=== PATIENT | female | born 1975 | race Caucasian/White ===

== ENCOUNTER → 2017-02-11 | Outpatient (REF) | payer OTHER | LOC: M LAB REF 15:12 | PROVIDERS: ATTEND Physician Assistant | DX: R30.0 Dysuria (principal) ==

== ENCOUNTER → 2017-02-11 | Outpatient (CLI) | payer OTHER | LOC: M WUC 14:37 | PROVIDERS: ATTEND Physician Assistant | DX: R30.0 Dysuria (principal) ==

== ENCOUNTER → 2017-05-27 | Outpatient (CLI) | payer OTHER ==
[2017-05-27 14:12] LABS: FREE T4 0.44 NG/DL (0.76-1.46)
== END ==
LOC: M LAB 11:50
DX: E89.0 Postprocedural hypothyroidism (principal)
CPT/HCPCS: 84443

== ENCOUNTER 2017-09-27 19:13 | Inpatient (IN) | payer OTHER ==
[2017-09-27 20:43] LABS: HEMATOCRIT 40.3 % (36.0-47.0); HEMOGLOBIN 13.6 g/dl (12.0-15.5); MEAN CORPUSCULAR HEMOGLOBIN 32.9 pg (27.0-33.0); MEAN CORPUSCULAR HGB CONC 33.7 g/dl (32.0-36.5); MEAN CORPUSCULAR VOLUME 97.6 fl (80.0-96.0); PLATELET COUNT, AUTOMATED 322 10^3/uL (150-450); RED BLOOD COUNT 4.13 10^6/uL (4.00-5.40); RED CELL DISTRIBUTION WIDTH 12.5 % (11.5-14.5)
[2017-09-27 20:57] LABS: CONTROL LINE HCG INT CTR LINE PRESENT; HCG, SERUM QUALITATIVE NEGATIVE (NEGATIVE)
[2017-09-27] MEDS: THIAMINE 100 MG TAB PO (21:00)
[2017-09-27 21:02] LABS: AMPHETAMINES LEVEL URINE NEGATIVE (NEGATIVE); BARBITURATES URINE NEGATIVE (NEGATIVE); BENZODIAZEPINES URINE NEGATIVE (NEGATIVE); CANNABINOIDS URINE NEGATIVE (NEGATIVE); COCAINE METABOLITE URINE NEGATIVE (NEGATIVE); METHADONE URINE NEGATIVE (NEGATIVE); OPIATES URINE NEGATIVE (NEGATIVE); PHENCYCLIDINE URINE NEGATIVE (NEGATIVE)
[2017-09-27 21:12] LABS: ACETAMINOPHEN LEVEL < 2.0 UG/ML (10.0-30.0); ALBUMIN 4.1 GM/DL (3.2-5.2); ALBUMIN/GLOBULIN RATIO 1.17 (1.00-1.93); ALKALINE PHOSPHATASE 68 U/L (45-117); ALT/SGPT 23 U/L (12-78); ANION GAP 8 MEQ/L (8-16); AST/SGOT 23 U/L (7-37); BILIRUBIN,DIRECT 0.1 MG/DL (0.0-0.2); BILIRUBIN,TOTAL 0.3 MG/DL (0.2-1.0); BLOOD UREA NITROGEN 11 MG/DL (7-18); CALCIUM LEVEL 8.3 MG/DL (8.5-10.1); CARBON DIOXIDE LEVEL 27 MEQ/L (21-32); CHLORIDE LEVEL 108 MEQ/L (98-107); ETHYL ALCOHOL (ETHANOL) 0.081 % (0.000-0.010); GLOMERULAR FILTRATION RATE > 60.0 (>58); GLUCOSE, FASTING 84 MG/DL (70-100); POTASSIUM SERUM 4.6 MEQ/L (3.5-5.1); SALICYLATE LEVEL < 1.7 MG/DL (5.0-30.0); SODIUM LEVEL 143 MEQ/L (136-145); TOTAL PROTEIN 7.6 GM/DL (6.4-8.2)
[2017-09-27] MEDS ORDERED: traZODone 50 MG TAB PO (22:00)
[2017-09-27] MEDS ORDERED: MAALOX 30 ML SUSP *UDC PO (22:00)
[2017-09-27] MEDS ORDERED: LORazepam 2 MG TAB PO (22:00)
[2017-09-27] MEDS ORDERED: MOM 30ML SUSPENSION UDC PO (22:00)
[2017-09-28] MEDS: ACETAMINOPHEN TAB 650MG DOSE (2X325MG) PO ×2 (00:33→20:24)
[2017-09-28] MEDS: OLANZapine ORAL DISINTEGRATING TAB 5MG PO (00:33)
[2017-09-28] MEDS: MULTIVITAMINS/MINERALS THERAP 1 TAB PO (12:15)
[2017-09-28] MEDS: FOLIC ACID 1 MG TAB PO (12:15)
[2017-09-28] MEDS: THIAMINE 100 MG TAB PO ×2 (12:15→20:24)
[2017-09-28] MEDS: CitaloPRAM (CeleXA) 10 MG TABLET PO (12:15)
[2017-09-28] MEDS: LEVOTHYROXINE 112MCG TABLET (0.112MG) PO (12:40)
[2017-09-28] MEDS: PILL CRUSHER/CUTTER 1 EACH XX (20:25)
[2017-09-29] MEDS: LEVOTHYROXINE 112MCG TABLET (0.112MG) PO (06:07)
[2017-09-29 07:30] LABS: FREE THYROXINE INDEX 1.5 % (1.3-4.8); T UPTAKE 32 % (30-39); THYROXINE (T4) 4.7 UG/DL (4.5-12.0)
[2017-09-29] MEDS: MULTIVITAMINS/MINERALS THERAP 1 TAB PO (08:28)
[2017-09-29] MEDS: THIAMINE 100 MG TAB PO ×2 (08:28→20:55)
[2017-09-29] MEDS: FOLIC ACID 1 MG TAB PO (08:28)
[2017-09-29] MEDS: CitaloPRAM (CeleXA) 10 MG TABLET PO (08:28)
[2017-09-29] MEDS ORDERED: ONDANSETRON 4 MG ORAL DISINTEGRATING TAB (Q0162 PER 1MG) PO (11:15)
[2017-09-30] MEDS: LEVOTHYROXINE 112MCG TABLET (0.112MG) PO (06:17)
[2017-09-30] MEDS: MULTIVITAMINS/MINERALS THERAP 1 TAB PO (08:17)
[2017-09-30] MEDS: FOLIC ACID 1 MG TAB PO (08:17)
[2017-09-30] MEDS: CitaloPRAM (CeleXA) 10 MG TABLET PO (08:17)
[2017-09-30] MEDS: THIAMINE 100 MG TAB PO (08:17)
[2017-09-30] MEDS: PILL CRUSHER/CUTTER 1 EACH XX (21:11)
[2017-10-01] MEDS: LEVOTHYROXINE 112MCG TABLET (0.112MG) PO (06:04)
[2017-10-01] MEDS: CitaloPRAM (CeleXA) 10 MG TABLET PO (07:51)
[2017-10-01] MEDS: MULTIVITAMINS/MINERALS THERAP 1 TAB PO (07:51)
[2017-10-01] MEDS: FOLIC ACID 1 MG TAB PO (07:51)
[2017-10-01] MEDS: ACETAMINOPHEN TAB 650MG DOSE (2X325MG) PO (07:52)
[2017-10-02] MEDS: LEVOTHYROXINE 112MCG TABLET (0.112MG) PO (05:38)
[2017-10-02] MEDS: FOLIC ACID 1 MG TAB PO (08:08)
[2017-10-02] MEDS: MULTIVITAMINS/MINERALS THERAP 1 TAB PO (08:08)
[2017-10-02] MEDS: CitaloPRAM (CeleXA) 10 MG TABLET PO (08:09)
[2017-10-02] MEDS: ACETAMINOPHEN TAB 650MG DOSE (2X325MG) PO (12:02)
[2017-10-03] MEDS: LEVOTHYROXINE 112MCG TABLET (0.112MG) PO (05:53)
[2017-10-03] MEDS: MULTIVITAMINS/MINERALS THERAP 1 TAB PO (08:15)
[2017-10-03] MEDS: CitaloPRAM (CeleXA) 10 MG TABLET PO (08:15)
[2017-10-03] MEDS: FOLIC ACID 1 MG TAB PO (08:15)
[2017-10-03] MEDS ORDERED: traZODone 25MG PER 1/2 TABLET PO (10:45)
[2017-10-03] MEDS: NALTREXONE 50 MG TAB PO (11:24)
[2017-10-04] MEDS: ACETAMINOPHEN TAB 650MG DOSE (2X325MG) PO (02:09)
[2017-10-04] MEDS: LEVOTHYROXINE 112MCG TABLET (0.112MG) PO (06:01)
[2017-10-04] MEDS: CitaloPRAM (CeleXA) 10 MG TABLET PO (07:29)
[2017-10-04] MEDS: NALTREXONE 50 MG TAB PO (07:30)
[2017-10-04] MEDS: MULTIVITAMINS/MINERALS THERAP 1 TAB PO (07:31)
[2017-10-04] MEDS: FOLIC ACID 1 MG TAB PO (07:31)
== END 2017-10-04 08:30 | DRG 885 ==
LOC: M ED 19:13 → M ED INP 21:54 → M PSY 22:48
DX: F31.64 Bipolar disorder, current episode mixed, severe, with psychotic features (principal); F43.10 Post-traumatic stress disorder, unspecified; E03.9 Hypothyroidism, unspecified; F10.10 Alcohol abuse, uncomplicated; Z79.899 Other long term (current) drug therapy; Z88.0 Allergy status to penicillin; Z88.5 Allergy status to narcotic agent

== ENCOUNTER 2017-11-07 22:03 | Emergency (ER) | payer OTHER ==
[2017-11-07 20:00] LABS: HEMATOCRIT 37.7 % (36.0-47.0); HEMOGLOBIN 12.6 g/dl (12.0-15.5); MEAN CORPUSCULAR HEMOGLOBIN 33.2 pg (27.0-33.0); MEAN CORPUSCULAR HGB CONC 33.4 g/dl (32.0-36.5); MEAN CORPUSCULAR VOLUME 99.2 fl (80.0-96.0); PLATELET COUNT, AUTOMATED 243 10^3/uL (150-450); RED CELL DISTRIBUTION WIDTH 12.5 % (11.5-14.5); WHITE BLOOD COUNT 8.8 10^3/uL (4.0-10.0)
[2017-11-07 20:10] LABS: CONTROL LINE HCG INT CTR LINE PRESENT; HCG, SERUM QUALITATIVE NEGATIVE (NEGATIVE)
[2017-11-07 20:14] LABS: AMPHETAMINES LEVEL URINE NEGATIVE (NEGATIVE); BARBITURATES URINE NEGATIVE (NEGATIVE); BENZODIAZEPINES URINE NEGATIVE (NEGATIVE); CANNABINOIDS URINE NEGATIVE (NEGATIVE); COCAINE METABOLITE URINE NEGATIVE (NEGATIVE); METHADONE URINE NEGATIVE (NEGATIVE); OPIATES URINE NEGATIVE (NEGATIVE); PHENCYCLIDINE URINE NEGATIVE (NEGATIVE)
[2017-11-07 20:23] LABS: ALBUMIN 3.8 GM/DL (3.2-5.2); ALBUMIN/GLOBULIN RATIO 1.19 (1.00-1.93); ALKALINE PHOSPHATASE 70 U/L (45-117); ALT/SGPT 27 U/L (12-78); ANION GAP 10 MEQ/L (8-16); AST/SGOT 19 U/L (7-37); BILIRUBIN,DIRECT < 0.1 MG/DL (0.0-0.2); BILIRUBIN,TOTAL 0.3 MG/DL (0.2-1.0); BLOOD UREA NITROGEN 15 MG/DL (7-18); CALCIUM LEVEL 8.3 MG/DL (8.5-10.1); CARBON DIOXIDE LEVEL 24 MEQ/L (21-32); CHLORIDE LEVEL 108 MEQ/L (98-107); CREATININE FOR GFR 0.83 MG/DL (0.55-1.30); ETHYL ALCOHOL (ETHANOL) 0.003 % (0.000-0.010); GLOMERULAR FILTRATION RATE > 60.0 (>58); GLUCOSE, FASTING 108 MG/DL (70-100); POTASSIUM SERUM 4.6 MEQ/L (3.5-5.1); SALICYLATE LEVEL < 1.7 MG/DL (5.0-30.0); SODIUM LEVEL 142 MEQ/L (136-145)
[2017-11-07 20:25] LABS: ACETAMINOPHEN LEVEL < 2.0 UG/ML (10.0-30.0)
== END 2017-11-08 08:19 | disposition short-term general hospital (02) ==
LOC: M ED 11-08 08:19
DX: R45.851 Suicidal ideations (principal); F32.9 Major depressive disorder, single episode, unspecified; F10.10 Alcohol abuse, uncomplicated; E07.9 Disorder of thyroid, unspecified; Z88.0 Allergy status to penicillin; Z88.5 Allergy status to narcotic agent; Z79.899 Other long term (current) drug therapy
CPT/HCPCS: 93005

== ENCOUNTER → 2020-02-23 | Outpatient (CLI) | payer OTHER ==
[~2020-02-23] MED LIST: ABIL1TAB13 PO; ACAM0.05 PO; ARIP1TAB4 PO; ARIP1TAB6 PO; CELE10TA PO; CELE20TA PO; CITA10TA5 PO; FOLI1TAB11 PO; LATU20TA PO; LEVO112T2 PO; LEVOTAB10 PO; NALT50TA4 PO; ONDA4TAB6 PO; TRAZ-252 PO; TRAZ1TAB11 PO; VITMTA PO
[2020-02-23 13:44] LABS: BASO # 0.1 10^3/uL (0.0-0.2); BASO % 0.9 % (0.0-1.0); EOS # 0.1 10^3/uL (0.0-0.5); EOS % 0.8 % (0.0-3.0); HEMATOCRIT 40.1 % (36.0-47.0); HEMOGLOBIN 12.9 g/dl (12.0-15.5); LYMPH # 2.5 10^3/uL (1.5-5.0); LYMPH % 21.7 % (24.0-44.0); MEAN CORPUSCULAR HEMOGLOBIN 32.6 pg (27.0-33.0); MEAN CORPUSCULAR HGB CONC 32.2 g/dl (32.0-36.5); MEAN CORPUSCULAR VOLUME 101.3 fl (80.0-96.0); MONO # 0.8 10^3/uL (0.0-0.8); NEUTROPHILS # 7.9 10^3/uL (1.5-8.5); NEUTROPHILS % 69.2 % (36.0-66.0); PLATELET COUNT, AUTOMATED 320 10^3/uL (150-450); RED BLOOD COUNT 3.96 10^6/uL (4.00-5.40); WHITE BLOOD COUNT 11.4 10^3/uL (4.0-10.0)
[2020-02-23 14:23] LABS: ALBUMIN 3.7 GM/DL (3.2-5.2); ALT/SGPT 17 U/L (12-78); BILIRUBIN,TOTAL 0.4 MG/DL (0.2-1.0); BLOOD UREA NITROGEN 10 MG/DL (7-18); CALCIUM LEVEL 8.9 MG/DL (8.5-10.1); CARBON DIOXIDE LEVEL 26 MEQ/L (21-32); CHLORIDE LEVEL 105 MEQ/L (98-107); CREATININE FOR GFR 0.95 MG/DL (0.55-1.30); FREE T4 0.47 NG/DL (0.76-1.46); GLOMERULAR FILTRATION RATE > 60.0 (>58); GLUCOSE, FASTING 79 MG/DL (70-100); POTASSIUM SERUM 4.6 MEQ/L (3.5-5.1); SODIUM LEVEL 137 MEQ/L (136-145); TOTAL PROTEIN 7.1 GM/DL (6.4-8.2)
== END ==
LOC: M WUC 09:09
PROVIDERS: ATTEND Nurse Practitioner Family
DX: E03.9 Hypothyroidism, unspecified (principal)

== ENCOUNTER → 2020-03-18 | Outpatient (CLI) | payer OTHER ==
[2020-03-18 11:16] LABS: BASO # 0.1 10^3/uL (0.0-0.2); BASO % 0.7 % (0.0-1.0); EOS # 0.1 10^3/uL (0.0-0.5); EOS % 1.5 % (0.0-3.0); HEMATOCRIT 37.6 % (36.0-47.0); HEMOGLOBIN 11.7 g/dl (12.0-15.5); LYMPH # 1.6 10^3/uL (1.5-5.0); LYMPH % 21.2 % (24.0-44.0); MEAN CORPUSCULAR HEMOGLOBIN 31.5 pg (27.0-33.0); MEAN CORPUSCULAR HGB CONC 31.1 g/dl (32.0-36.5); MEAN CORPUSCULAR VOLUME 101.3 fl (80.0-96.0); MONO # 0.7 10^3/uL (0.0-0.8); MONO % 9.7 % (0.0-5.0); NEUTROPHILS # 4.9 10^3/uL (1.5-8.5); NEUTROPHILS % 66.6 % (36.0-66.0); PLATELET COUNT, AUTOMATED 229 10^3/uL (150-450); RED BLOOD COUNT 3.71 10^6/uL (4.00-5.40); WHITE BLOOD COUNT 7.4 10^3/uL (4.0-10.0)
[2020-03-18 11:51] LABS: FERRITIN 22 NG/ML (8-252); FREE T4 1.19 NG/DL (0.76-1.46); IRON (FE) 71 UG/DL (50-170); MAGNESIUM LEVEL 2.1 MG/DL (1.8-2.4); PERCENT SATURATION 19.9 % (13.2-45.0); PHOSPHORUS LEVEL 3.1 MG/DL (2.5-4.9); PTH INTACT 32.9 PG/ML (18.5-88.0); TOTAL 25(OH) VITAMIN D 33.3 NG/ML (30.0-100.0); TOTAL IRON BINDING CAPACITY 357 UG/DL (250-450); VITAMIN B12 LEVEL > 2000 PG/ML (247-911)
[2020-03-18 11:52] LABS: FOLATE > 24.0 NG/ML (>5.4)
== END ==
LOC: M WUC 08:22
PROVIDERS: ATTEND Nurse Practitioner Family
DX: F31.9 Bipolar disorder, unspecified (principal); Z98.84 Bariatric surgery status; Z41.9 Encounter for procedure for purposes other than remedying health state, unspecified

== ENCOUNTER 2020-11-28 23:20 | Emergency (ER) | payer OTHER ==
[2020-11-28] MEDS ORDERED: CLON0.5T2 (23:44)
[2020-11-28] MEDS ORDERED: BUSP10TA (23:44)
[2020-11-28] MEDS ORDERED: LEVO125C (23:44)
[2020-11-28] MEDS ORDERED: LAMO100T3 (23:44)
[2020-11-28] MEDS ORDERED: HALOPERIDOL 5MG/ML VIAL (J1630 PER 1) IM ONE (23:50)
[2020-11-28] MEDS ORDERED: diphenhydrAMINE 50MG/ML VIAL (J1200) IM ONE (23:50)
[2020-11-28] MEDS ORDERED: LORazepam 2 MG/ML VIAL IM ONE (23:50)
[2020-11-29 00:05] LABS: AMPHETAMINES LEVEL URINE NEGATIVE (NEGATIVE); BARBITURATES URINE NEGATIVE (NEGATIVE); BENZODIAZEPINES URINE NEGATIVE (NEGATIVE); CANNABINOIDS URINE NEGATIVE (NEGATIVE); COCAINE METABOLITE URINE NEGATIVE (NEGATIVE); METHADONE URINE NEGATIVE (NEGATIVE); OPIATES URINE NEGATIVE (NEGATIVE); PHENCYCLIDINE URINE NEGATIVE (NEGATIVE)
[2020-11-29 00:07] LABS: HEMATOCRIT 40.1 % (36.0-47.0); HEMOGLOBIN 13.2 g/dl (12.0-15.5); MEAN CORPUSCULAR HEMOGLOBIN 32.7 pg (27.0-33.0); MEAN CORPUSCULAR HGB CONC 32.9 g/dl (32.0-36.5); MEAN CORPUSCULAR VOLUME 99.3 fl (80.0-96.0); PLATELET COUNT, AUTOMATED 262 10^3/uL (150-450); RED BLOOD COUNT 4.04 10^6/uL (4.00-5.40); WHITE BLOOD COUNT 7.3 10^3/uL (4.0-10.0)
[2020-11-29 00:33] LABS: ACETAMINOPHEN LEVEL < 2.0 UG/ML (10.0-30.0); ALBUMIN 4.2 GM/DL (3.2-5.2); ALT/SGPT 69 U/L (12-78); BILIRUBIN,DIRECT 0.1 MG/DL (0.0-0.2); BILIRUBIN,TOTAL 0.3 MG/DL (0.2-1.0); BLOOD UREA NITROGEN 7 MG/DL (7-18); CALCIUM LEVEL 8.9 MG/DL (8.5-10.1); CARBON DIOXIDE LEVEL 23 MEQ/L (21-32); CHLORIDE LEVEL 105 MEQ/L (98-107); CREATININE FOR GFR 0.68 MG/DL (0.55-1.30); ETHYL ALCOHOL (ETHANOL) 0.305 % (0.000-0.010); GLOMERULAR FILTRATION RATE > 60.0 (>58); GLUCOSE, FASTING 116 MG/DL (70-100); POTASSIUM SERUM 3.8 MEQ/L (3.5-5.1); SALICYLATE LEVEL < 1.7 MG/DL (5.0-30.0); SODIUM LEVEL 139 MEQ/L (136-145); THYROID STIMULATING HORMONE 0.058 uIU/ML (0.358-3.740); TOTAL PROTEIN 7.6 GM/DL (6.4-8.2)
[2020-11-29] MEDS ORDERED: LORazepam 2 MG TAB PO PRN (07:10)
[2020-11-29] MEDS ORDERED: THIAMINE 100 MG TAB PO SCH (09:00)
[2020-11-29] MEDS ORDERED: MULTIVITAMINS/MINERALS THERAP 1 TAB PO SCH (09:00)
[2020-11-29] MEDS ORDERED: FOLIC ACID 1 MG TAB PO SCH (09:00)
[2020-11-29 11:30] VITALS: BP 136/86
== END 2020-11-29 12:28 | disposition home or self-care (01) ==
LOC: M ED 23:20
DX: F15.10 Other stimulant abuse, uncomplicated (principal); Z79.899 Other long term (current) drug therapy; Z88.0 Allergy status to penicillin; Z88.5 Allergy status to narcotic agent
CPT/HCPCS: 36415; 80048; 80076; 80143; 80307; 82077; 84443; 85027; 96372; 99285; J1200; J1630; J2060

== ENCOUNTER 2021-06-15 04:11 | Emergency (ER) | payer OTHER ==
[~2021-06-15] VITALS: Ht 149.9 cm; Wt 72.7 kg
[~2021-06-15 04:11] MED LIST changes: +BUSP10TA PO; -CITA10TA5 PO; +CITA10TA7 PO; +CLON0.5T2 PO; +LAMO100T3 PO; +LEVO125C
[2021-06-15] MEDS ORDERED: LORazepam 2 MG TAB PO ONE (04:30)
[2021-06-15] MEDS ORDERED: BIOT1CAP2 PO (04:38)
[2021-06-15 05:54] LABS: HEMATOCRIT 36.3 % (36.0-47.0); HEMOGLOBIN 11.8 g/dl (12.0-15.5); MEAN CORPUSCULAR HEMOGLOBIN 32.9 pg (27.0-33.0); MEAN CORPUSCULAR HGB CONC 32.5 g/dl (32.0-36.5); MEAN CORPUSCULAR VOLUME 101.1 fl (80.0-96.0); PLATELET COUNT, AUTOMATED 253 10^3/uL (150-450); RED BLOOD COUNT 3.59 10^6/uL (4.00-5.40); WHITE BLOOD COUNT 6.4 10^3/uL (4.0-10.0)
[2021-06-15 06:19] LABS: HCG, SERUM QUALITATIVE NEGATIVE (NEGATIVE)
[2021-06-15 06:25] LABS: ACETAMINOPHEN LEVEL < 2.0 UG/ML (10.0-30.0); ALBUMIN 3.5 GM/DL (3.2-5.2); ALT/SGPT 17 U/L (12-78); BILIRUBIN,DIRECT < 0.1 MG/DL (0.0-0.2); BILIRUBIN,TOTAL 0.1 MG/DL (0.2-1.0); BLOOD UREA NITROGEN 9 MG/DL (7-18); CALCIUM LEVEL 7.9 MG/DL (8.5-10.1); CARBON DIOXIDE LEVEL 27 MEQ/L (21-32); CHLORIDE LEVEL 112 MEQ/L (98-107); CREATININE FOR GFR 0.74 MG/DL (0.55-1.30); ETHYL ALCOHOL (ETHANOL) 0.202 % (0.000-0.010); GLOMERULAR FILTRATION RATE > 60.0 (>58); GLUCOSE, FASTING 104 MG/DL (70-100); POTASSIUM SERUM 3.9 MEQ/L (3.5-5.1); SALICYLATE LEVEL < 1.7 MG/DL (5.0-30.0); SODIUM LEVEL 145 MEQ/L (136-145); THYROID STIMULATING HORMONE 0.423 uIU/ML (0.358-3.740); TOTAL PROTEIN 6.7 GM/DL (6.4-8.2)
[2021-06-15 06:29] LABS: AMPHETAMINES LEVEL URINE NEGATIVE (NEGATIVE); BARBITURATES URINE NEGATIVE (NEGATIVE); BENZODIAZEPINES URINE NEGATIVE (NEGATIVE); CANNABINOIDS URINE NEGATIVE (NEGATIVE); COCAINE METABOLITE URINE NEGATIVE (NEGATIVE); METHADONE URINE NEGATIVE (NEGATIVE); OPIATES URINE NEGATIVE (NEGATIVE); PHENCYCLIDINE URINE NEGATIVE (NEGATIVE)
[2021-06-15] MEDS ORDERED: LEVO125T41 PO (09:48)
[2021-06-15] MEDS ORDERED: LEVOTAB10 PO (09:48)
[2021-06-15] MEDS ORDERED: D31000TA2 PO (09:48)
[2021-06-15] MEDS ORDERED: BUSP10TA PO (09:48)
[2021-06-15] MEDS ORDERED: VITMTA PO (09:48)
[2021-06-15] MEDS ORDERED: CYAN100049 PO (09:48)
[2021-06-15] MEDS ORDERED: HOME MED LIST COMPLETE! XX SCH (09:50)
[2021-06-16 06:10] VITALS: BP 167/106
== END 2021-06-16 06:20 ==
LOC: M ED 04:11
DX: R45.851 Suicidal ideations (principal); F10.10 Alcohol abuse, uncomplicated; Z88.0 Allergy status to penicillin; Z88.6 Allergy status to analgesic agent; Z79.899 Other long term (current) drug therapy